=== PATIENT | male | born 1945 | race Caucasian/White ===

== ENCOUNTER → 2016-07-12 | Outpatient (CLI) | payer MEDICARE, OTHER | LOC: MW.CHFP 08:00 | PROVIDERS: ATTEND Student in an Organized Health Care Education/Training Program | DX: Z23 Encounter for immunization (principal) | CPT/HCPCS: 90471; 90714 ==

== ENCOUNTER → 2016-07-20 | Outpatient (CLI) | payer MEDICARE, OTHER ==
--- NOTE | 2016-07-20 15:53 | CR ---
EXAMINATION: Right shoulder HISTORY: Pain COMPARISON: None TECHNIQUE: 3 views FINDINGS/IMPRESSION: Moderate acromioclavicular and mild glenohumeral osteoarthritic changes are not ed. Subcortical cysts are noted at the rotator cuff insertion. Bone mineralization is normal to mild ly osteopenic. No acute osseous abnormality noted.
== END ==
LOC: MW.CHFP 11:26
PROVIDERS: ATTEND Student in an Organized Health Care Education/Training Program
DX: M25.511 Pain in right shoulder (principal); M19.011 Primary osteoarthritis, right shoulder; M85.811 Other specified disorders of bone density and structure, right shoulder
CPT/HCPCS: 20610; 73030-26-RT; 73030-RT; G0463; J3301

== ENCOUNTER → 2016-07-29 | Outpatient (CLI) | payer MEDICARE, OTHER | LOC: MW.CHUR 12:20 | PROVIDERS: ATTEND Urology | DX: N40.1 Benign prostatic hyperplasia with lower urinary tract symptoms (principal); R97.20 Elevated prostate specific antigen [PSA]; N42.9 Disorder of prostate, unspecified; R35.1 Nocturia; Z23 Encounter for immunization | CPT/HCPCS: 36415; 84153; 90732; G0009; G0463 ==

== ENCOUNTER 2020-01-06 12:52 | Emergency (ER) | payer MEDICARE, OTHER ==
--- NOTE | 2020-01-06 13:04 | EDM.PDOC ---
ED HPI GENERAL MEDICAL PROBLEM - General Stated Complaint: FISH HOOK IN FINGER Time Seen by Provider: 01/06/20 12:53 Source of Information: Reports: Patient History Limitations: Reports: No Limitations - History of Present Illness INITIAL COMMENTS - FREE TEXT/NARRATIVE: 74M presents with fish hook stuck in right index finger. Unable to remove on his own. He denies any other injuries. Uncertain Tdap status hand Pain Score (Numeric/FACES): 2 - Related Data Allergies Allergy/AdvReac Type Severity Reaction Status Date / Time No Known Allergies Allergy Verified 01/06/20 13:27 Home Meds: Home Meds Omeprazole 1 tab PO DAILY 07/18/14 [History] Tamsulosin [Flomax] 01/06/20 [History] ED ROS GENERAL - Review of Systems Review Of Systems: Comprehensive ROS is negative, except as noted in HPI. ED EXAM, GENERAL - Physical Exam Exam: See Below Exam Limited By: No Limitations General Appearance: Alert, WD/WN, No Apparent Distress Ears: Normal External Exam Nose: Normal Inspection Throat/Mouth: Normal Voice, No Airway Compromise Head: Atraumatic, Normocephalic Neck: Normal Inspection Respiratory/Chest: No Respiratory Distress, No Accessory Muscle Use Cardiovascular: Normal Peripheral Pulses, Regular Rate, Rhythm Extremities: Normal Inspection, Other (fish hook stuck in R second digit) Neurological: Alert Psychiatric: Normal Affect, Normal Mood Skin Exam: Warm, Dry, Intact, Normal Color Foreign Body Removal - Pre-Procedure Indication: fish hook stuck in R 2nd digit Consent Obtained: Reports: Patient Performing Doctor:: Dany Randolph - Location/Anesthesia Right Foreign Body Other Location Comment:: index finger Anesthesia Type: Local Anesthesia Other:: Fish hook was advanced through and the barbed end was cut off with wire cutters, the fish hook was then pulled out of the patient's finger - Post-Procedure Complications:: No Course - Vital Signs Last Recorded V/S: Last Vital Signs Temp 97.0 F 01/06/20 13:25 Pulse 68 01/06/20 13:25 Resp 16 01/06/20 13:25 BP 145/82 H 01/06/20 13:25 Pulse Ox 94 L 01/06/20 13:25 - Orders/Labs/Meds Orders: Active Orders 24 hr Category Date Time Status Vaccines to be Administered [RC] PER UNIT ROUTINE Care 01/06/20 13:15 Active Meds: Medications Discontinued Medications Generic Name Dose Route Start Last Admin Trade Name David PRN Reason Stop Dose Admin Diphtheria/Tetanus/Acell Pertussis 0.5 ml 01/06/20 13:15 01/06/20 13:26 Adacel IM 01/06/20 13:16 0.5 ml .ONCE ONE Administration Lidocaine HCl 10 ml 01/06/20 13:14 01/06/20 13:27 Xylocaine 1% INJECT 01/06/20 13:15 Not Given ONETIME ONE Lidocaine HCl Confirm 01/06/20 13:23 01/06/20 13:27 Xylocaine-Mpf 1% Administered 01/06/20 13:24 Not Given Dose 10 ml .ROUTE .STK-MED ONE Lidocaine HCl 10 ml 01/06/20 13:25 01/06/20 13:27 Xylocaine-Mpf 1% INJECT 01/06/20 13:26 10 ml ONETIME ONE Administration - Re-Assessments/Exams Free Text/Narrative Re-Assessment/Exam: 01/06/20 13:33 Will remove FB, will update Tdap Departure - Departure Time of Disposition: 13:57 Disposition: Home, Self-Care 01 Condition: Good Clinical Impression: Fish hook injury of finger Qualifiers: Encounter type: initial encounter Laterality: right Qualified Code(s): S69.91XA - Unspecified injury of right wrist, hand and finger(s), initial encounter - Discharge Information Instructions: Hand or Foot Foreign Body, Adult Referrals: Chester Escobedo MD [Primary Care Provider] - Additional Instructions: The following information is given to patients seen in the emergency department who are being discharged to home. This information is to outline your options for follow-up care. We provide all patients seen in our emergency department with a follow-up referral. The need for follow-up, as well as the timing and circumstances, are variable depending upon the specifics of your emergency department visit. If you don't have a primary care physician on staff, we will provide you with a referral. We always advise you to contact your personal physician following an emergency department visit to inform them of the circumstance of the visit and for follow-up with them and/or the need for any referrals to a consulting specialist. The emergency department will also refer you to a specialist when appropriate. This referral assures that you have the opportunity for follow-up care with a specialist. All of these measure are taken in an effort to provide you with optimal care, which includes your follow-up. Under all circumstances we always encourage you to contact your private physician who remains a resource for coordinating your care. When calling for follow-up care, please make the office aware that this follow-up is from your recent emergency room visit. If for any reason you are refused follow-up, please contact the [facility] Emergency Department at and asked to speak to the emergency department charge nurse. Please follow up with your primary care physician. If you do not have a primary care physician, see below: [facility] [address] [place] [id number] [facility] [address] [place] [id number] Sepsis Event Note (ED) - Focused Exam Vital Signs: Vital Signs Temp Pulse Resp BP Pulse Ox 01/06/20 13:25 97.0 F 68 16 145/82 H 94 L - My Orders Last 24 Hours: My Active Orders 01/06/20 13:15 Vaccines to be Administered [RC] PER UNIT ROUTINE - Assessment/Plan Last 24 Hours: My Active Orders 01/06/20 13:15 Vaccines to be Administered [RC] PER UNIT ROUTINE
[2020-01-06] MEDS ORDERED: Lidocaine 1% 10 ML MDV INJECT ONE (13:14)
[2020-01-06] MEDS ORDERED: Diphtheria,Pertussis(Acell),Tetanus Vaccine 0.5 ML Syringe IM ONE (13:15)
[2020-01-06 13:27] VITALS: BP 145/82
[2020-01-06 15:59] VITALS: PULSE 70
== END 2020-01-06 14:07 | disposition home or self-care (01) ==
LOC: MW.ED 12:52
DX: S60.450A Superficial foreign body of right index finger, initial encounter (principal); Z79.899 Other long term (current) drug therapy; Z23 Encounter for immunization; W45.8XXA Other foreign body or object entering through skin, initial encounter
CPT/HCPCS: 90471; 90715; 99283; J2001; 64450; 99282

== ENCOUNTER 2023-01-16 11:30 | Emergency (ER) | payer MEDICARE, OTHER ==
[2023-01-16 12:21] LABS: APPEARANCE,URINE CLEAR; BILIRUBIN,URINE NEGATIVE (NEGATIVE); COLOR,URINE YELLOW; GLUCOSE,URINE NEGATIVE (NEGATIVE); KETONES,URINE NEGATIVE (NEGATIVE); LEUKOCYTE ESTERASE,URINE NEGATIVE (NEGATIVE); NITRITE,URINE NEGATIVE (NEGATIVE); OCCULT BLOOD,URINE NEGATIVE (NEGATIVE); PROTEIN,URINE NEGATIVE (NEGATIVE)
[2023-01-16 13:18] VITALS: BP 131/85; PULSE 86
== END 2023-01-16 13:17 | disposition home or self-care (01) ==
LOC: MW.ED 11:30
DX: R33.9 Retention of urine, unspecified (principal)
CPT/HCPCS: 51702; 81003; 99283

== ENCOUNTER 2023-01-16 17:29 | Emergency (ER) | payer MEDICARE, OTHER ==
[2023-01-16 18:12] VITALS: BP 150/72; PULSE 64
== END 2023-01-16 18:38 | disposition home or self-care (01) ==
LOC: MW.ED 17:29
DX: R31.9 Hematuria, unspecified (principal)
CPT/HCPCS: 99283

== ENCOUNTER 2023-07-04 13:42 | Emergency (ER) | payer OTHER, MEDICARE ==
[2023-07-04 13:57] VITALS: BP 141/74; PULSE 55
[2023-07-04] MEDS: Lidocaine 1% 5 ML VIAL INJECT ONE (16:06)
== END 2023-07-04 16:24 | disposition home or self-care (01) ==
LOC: MW.ED 13:42
DX: S01.81XA Laceration without foreign body of other part of head, initial encounter (principal); Z75.8 Other problems related to medical facilities and other health care; Z79.899 Other long term (current) drug therapy; W22.8XXA Striking against or struck by other objects, initial encounter
CPT/HCPCS: 12013; 99282; 99283; J3490

== ENCOUNTER 2023-07-06 11:27 | Emergency (ER) | payer OTHER, MEDICARE ==
[2023-07-06] MEDS: Lidocaine 4% 1 each Patch TOP PRN (12:16)
[2023-07-06 13:14] VITALS: BP 135/66; PULSE 66
== END 2023-07-06 13:15 | disposition home or self-care (01) ==
LOC: MW.ED 11:27
DX: M25.511 Pain in right shoulder (principal); Z79.899 Other long term (current) drug therapy; Z79.82 Long term (current) use of aspirin; Z86.16 Personal history of COVID-19; Z75.8 Other problems related to medical facilities and other health care
CPT/HCPCS: 70450; 73030; 99284; A9270